=== PATIENT | male | born 1995 | race Caucasian/White ===

== ENCOUNTER 2017-11-20 09:43 | Emergency (ER) | payer BC ==
[~2017-11-20] VITALS: Ht 185.4 cm; Wt 109.1 kg
[2017-11-20 09:45] VITALS: TEMP 98.4
[2017-11-20] MEDS ORDERED: MYSOLINE 5050 MG/TAB PO (09:49)
[2017-11-20 10:03] VITALS: BP 123/70; PULSE 75
[2017-11-20] MEDS ORDERED: ZOFRAN ODT4 MG PO (10:14)
== END 2017-11-20 10:36 | disposition home or self-care (01) ==
LOC: COL.ER 09:43
DX: R11.2 Nausea with vomiting, unspecified (principal); R42 Dizziness and giddiness; T42.3X5A Adverse effect of barbiturates, initial encounter

== ENCOUNTER → 2017-12-08 | Outpatient (CLI) | payer BC ==
[~2017-12-08] MED LIST: MYSOLINE 5050 MG/TAB PO; ZOFRAN ODT4 MG PO
== END ==
LOC: COL.RAD 13:40
DX: R25.1 Tremor, unspecified (principal)
CPT/HCPCS: A9585